=== PATIENT | female | born 1970 | race Hispanic/Latino ===

== ENCOUNTER 2017-07-04 12:49 | Emergency (ER) | payer OTHER ==
[~2017-07-04] VITALS: Ht 157.5 cm; Wt 70.3 kg
[2017-07-04] MEDS ORDERED: ZOFRAN ODT4 MG (13:57)
[2017-07-04 14:10] VITALS: BP 116/76
== END 2017-07-04 13:35 | disposition home or self-care (01) ==
LOC: FSED 12:49
DX: R50.9 Fever, unspecified (principal); R05 Cough; M79.1 Myalgia
CPT/HCPCS: 99281